=== PATIENT | male | born 1945 | race Caucasian/White ===

== ENCOUNTER → 2017-12-29 | Outpatient (CLI) | payer MEDICARE ==
[2017-12-29 09:55] LABS: ALBUMIN 3.8 GM/DL (3.4-5.0); ALT (GPT) 50 U/L (12-78); AST (GOT) 25 U/L (15-37); BICARBONATE 24.8 MEQ/L (21.0-32.0); BLOOD UREA NITROGEN 15 MG/DL (7-18); CHLORIDE 108 MEQ/L (98-107); CREATININE 0.84 MG/DL (0.60-1.30); GLOMERULAR FILTRATION RATE 90 ML/MIN (>89); GLUCOSE,FASTING 86 MG/DL (74-99); SODIUM (NA) 142 MEQ/L (136-145)
[2017-12-29 09:58] LABS: ALKALINE PHOSPHATASE 87 U/L (45-117); CHOLESTEROL 109 MG/DL (120-200); CHOLESTEROL/ HDL RATIO 3.49 RATIO; HDL CHOLESTEROL 31.2 MG/DL (40.0-60.0); LDL CHOLESTEROL 32 MG/DL (0-99); TOTAL BILIRUBIN ADULT 0.6 MG/DL (0.2-1.0); TRIGLYCERIDES 228 MG/DL (42-150)
== END ==
LOC: CLAB 09:08
PROVIDERS: ATTEND Family Medicine
DX: E78.2 Mixed hyperlipidemia (principal); E34.9 Endocrine disorder, unspecified
CPT/HCPCS: 36415; 80053; 80061; 84403

== ENCOUNTER → 2018-01-06 | Outpatient (CLI) | payer MEDICARE ==
[2018-01-06 13:19] LABS: RHEUMATOID FACTOR SCREEN POSITIVE (NEGATIVE)
== END ==
LOC: CLAB 11:38
PROVIDERS: ATTEND Family Medicine
DX: M12.9 Arthropathy, unspecified (principal); N40.0 Benign prostatic hyperplasia without lower urinary tract symptoms
CPT/HCPCS: 36415; 84153; 84550; 85652; 86038; 86430